=== PATIENT | male | born 1995 | race Caucasian/White ===

== ENCOUNTER 2021-03-16 18:52 | Inpatient (IN) ==
[2021-03-16] MEDS ORDERED: VANCOMYCIN CONSULT ACTIVE PRN (20:15)
[2021-03-16] MEDS ORDERED: VANCOMYCIN HCL 2,250 MG in SODIUM CHLORIDE 0.9% 500 ML IV ONE (20:15)
[2021-03-16] MEDS ORDERED: cefTRIAXone SODIUM 2,000 MG/70 ML BAG IV STA (20:15)
[2021-03-16] MEDS ORDERED: SODIUM CHLORIDE 0.9% 1000ML 1,000 ML IV ONE (20:15)
[2021-03-16 20:25] LABS: Basophils # (auto) 0.03 K/uL (0-0.2); Basophils % (auto) 0.4 %; Eosinophils # (auto) 0.06 K/uL (0-0.5); Eosinophils % (auto) 0.7 %; Hematocrit (blood only) 46.9 % (42-52); Hemoglobin 16.1 g/dL (14.0-18.0); Immature Granulocytes # (auto) 0.02 K/uL (0.00-0.02); Immature Granulocytes % (auto) 0.2 %; Lymphocytes # (auto) 3.17 K/uL (1.2-3.4); Lymphocytes % (auto) 38.8 %; Mean Corpuscular Hgb Conc 34.3 g/dL (32-36); Mean Corpuscular Volume 90.4 fL (80-100); Mean Platelet Volume 10.4 fL (7.4-10.4); Monocytes # (auto) 0.72 K/uL (0.11-0.59); Monocytes % (auto) 8.8 %; Neutrophils # (auto) 4.17 K/uL (1.4-6.5); Neutrophils % (auto) 51.1 %; Platelet Count 270 K/uL (130-400); RDW Coefficient of Variation 12.1 % (11.5-14.5); RDW Standard Deviation 39.8 fL (36.4-46.3); Red Blood Count 5.19 M/uL (4.7-6.1); White Blood Count 8.17 K/uL (4.8-10.8)
[2021-03-16 20:48] LABS: Albumin Level 4.5 gm/dl (3.4-5.0); C Reactive Protein 1.18 mg/dl (0-0.29); Calcium 10.2 mg/dl (8.5-10.1); Creatinine Clr Calc Pharmacy 136.9 ml/min; Est GFR (African American) 131.6 ml/min; Est GFR (Non-African American) 113.6 ml/min; Potassium 3.9 mmol/L (3.5-5.1)
[2021-03-16 20:51] LABS: Bilirubin,Total 0.5 mg/dl (0.2-1); Globulin 4.6 gm/dl (2.5-4.0); Total Protein 9.1 gm/dl (6.4-8.2)
--- NOTE | 2021-03-16 21:22 | XRay Report ---
XR foot LT min 3V routine, XR ankle LT min 3V routine HISTORY: 26 years-old Male cellulitis, h/o metatarsal fx acute pain of the left foot and ankle COMPARISON: Left foot radiographs 02/28/2021 TECHNIQUE: 3 views of the left foot and 3 views of the left ankle FINDINGS: FOOT: Subacute healing fractures with unchanged alignment of the first, second and third metatarsals. No ad ditional acute fracture or dislocation. No opaque foreign body. Decreased soft tissue swelling of the forefoot. ANKLE: Moderate circumferential soft tissue swelling. No acute fracture, dislocation or osteochondral defect . Small plantar enthesophyte of the calcaneus. IMPRESSION: 1. Unchanged alignment of the healing subacute nondisplaced fractures of the first, second and third metatarsals. 2. Decreased soft tissue swelling of the forefoot. 3. Circumferential soft tissue swelling of the ankle. ACT 112: Negative or not required by law. The above report was generated using voice recognition software. It may contain grammatical, syntax o r spelling errors. Electronically signed by: Eric Langford M.D. 03/16/2021 9:21 PM
--- NOTE | 2021-03-16 22:09 | Emergency Department Note ---
Impression & Plan Cellulitis and abscess of foot, Metatarsal bone fracture, Current every day smoker ED Provider Note NAME: JESSIKA TOLENTINO AGE: 26 SEX: M ARRIVES VIA: Walk-In INFORMANT: Patient, ED PROVIDER(S): Claude Rico MD CHIEF COMPLAINT: Foot cellulitis PLAN: Disposition: Admit MEDICAL DECISION MAKING: The patient is a pleasant 26-year-old gentleman daily smoker who presents to the emergency department for evaluation and treatment of worsening cellulitis of his left foot which occurs in the setting of recent metatarsal fractures of the first, second and third phalanx seen in the ED for this approximately 2 weeks ago placed in Ortho-Glass splint followed up with [facility] orthopedics where he was transition to a walking boot but then the patient noticed redness warmth and tenderness developing where his PCP started him on doxycycline but did not have any improvement towards the end of this course and was seen in the emergency department given Rocephin and discharged on cefdinir. However the patient reports no improvement since his last ED visit and persistence of pain and redness. He denies any fevers, chills, cough, congestion, GI or symptoms. He denies any known COVID-19 exposures. On arrival the patient is relatively well-appearing in no acute distress, afebrile stable vital signs. His left foot does appear somewhat mottled with mild erythema warmth and tenderness of the dorsum of the foot. Small area of midfoot with increased induration with mild fluctuance. There is no crepitus. Given the patient's failed outpatient management with oral antibiotics reasonable admit the patient for further management with IV treatment. The patient is agreement this. Blood work including blood cultures were drawn and treatment was initiated with ceftriaxone and vancomycin. Plain films of the left foot and ankle did not show any interval changes in his fracture. WBC, H/H in place within normal limits. Chemistry without metabolic acidosis. Lactate 1.2, within normal limits. LFTs without abnormality. ESR and CRP are marginally elevated. COVID-19 PCR is pending. Case was discussed with Dr. Valladares, [facility] hospitalist, who will evaluate the patient for admission. I did perform a limited bedside ultrasound of the dorsum of the patient's left foot or area of fluctuance with demonstrated suspicious collection for abscess. Formal ultrasound was ordered and is pending. Will defer I&D at this time pending likely orthopedic consultation in a.m. for more thorough examination. Admitting team updated. Triage Nursing notes reviewed and agree them. Prior medical records reviewed Vital Signs: reviewed and remarkable for no significant abnormalities Differential diagnosis: Cellulitis, abscess, MRSA infection, DVT, necrotizing fasciitis, dermatitis, drug eruption, allergic reaction, as well as other pathologies. ER treatment provided: See below. Diagnostics interpreted by me: Cardiac Monitoring: An order for continuous cardiac monitoring was placed and demonstrated NSR, 77 bpm, no ectopy. Laboratory studies: See below Imaging studies: See below Consultation(s): Case was discussed with Dr. Valladares, [facility] hospitalist, who will evaluate the patient for admission. HPI: The patient is a pleasant 26-year-old gentleman daily smoker who presents to the emergency department for evaluation and treatment of worsening cellulitis of his left foot which occurs in the setting of recent metatarsal fractures of the first, second and third phalanx seen in the ED for this approximately 2 weeks ago placed in Ortho-Glass splint followed up with [facility] orthopedics where he was transition to a walking boot but then the patient noticed redness warmth and tenderness developing where his PCP started him on doxycycline but did not have any improvement towards the end of this course and was seen in the emergency department given Rocephin and discharged on cefdinir. However the patient reports no improvement since his last ED visit and persistence of pain and redness. He denies any fevers, chills, cough, congestion, GI or symptoms. He denies any known COVID-19 exposures. ROS: See above HPI for pertinent positives & negatives. A total of 10 systems reviewed and were otherwise negative. PAST MEDICAL HISTORY:See Below PAST SURGICAL HISTORY:See Below FAMILY HISTORY:See Below SOCIAL HISTORY:See Below HOME MEDICATIONS:See Below ALLERGIES:See Below VITALS:See Below PHYSICAL EXAMINATION: GENERAL: Awake, alert, well-appearing, in no distress HENT: Normocephalic, atraumatic. Oropharynx unremarkable. EYES: Normal conjunctiva. Sclera non-icteric. NECK: Supple. No nuchal rigidity. FROM. No JVD. RESPIRATORY: Clear to auscultation. CARDIAC: Regular rate, normal rhythm. Extremities warm and well perfused. Pulses equal. ABDOMEN: Soft, non-distended. No tenderness to palpation. No rebound or guarding. No masses. RECTAL: Deferred. MUSCULOSKELETAL: Chest examination reveals no tenderness. The back is symmetrical on inspection without obvious abnormality. There is no CVA tenderness to palpation. No joint edema. LOWER EXTREMITIES: Calves are equal size bilaterally and non-tender. Left foot is somewhat mottled with mild erythema warmth and tenderness of the dorsum of the foot. Small area of midfoot with increased induration with mild fluctuance. There is no crepitus. NEURO: Normal sensorium. No sensory or motor deficits noted. SKIN: No rash or jaundice noted. Claude Rico MD Past Med/Surg History Medical History Bipolar disorder Episode of shaking Infectious mononucleosis Injury of right hand Metatarsal bone fracture Pain, dental Vomiting Surgical History No significant past surgical history Family History Other No pertinent family history in first degree relatives Social History Smoking Status: Current every day smoker Tobacco Type: E-cigarettes / Vaping Do You Dip or Chew Tobacco: No; Tobacco Cessation Education Requested by Patient: No Hx Alcohol Use: Yes Alcohol type: beer, wine and hard liquor Hx Substance Use: No Preferred Language: Kosovan Communication Ability: Effective Beliefs That Will Affect Care: None marital status: Single Current Living Situation: Spouse current occupational status: employed Other Information That Helps Us Care for You: No Feels Safe at Home: Yes Assistive Devices: Brace/Splint/Immobilizer Allergies Allergies Allergy/AdvReac Type Severity Reaction Status Date / Time vancomycin AdvReac red man Verified 03/17/21 06:16 syndrome Home Meds Home Medications Medication Instructions Recorded Confirmed baclofen 20 mg PO TID PRN 05/24/20 03/16/21 montelukast 10 mg PO HS 05/24/20 03/16/21 albuterol sulfate 2 puff INHALATION Q4 PRN 03/16/21 03/16/21 benzonatate 100 mg PO TID PRN 03/16/21 03/16/21 celecoxib 100 mg PO QAM 03/16/21 03/16/21 cetirizine 10 mg PO QAM 03/16/21 03/16/21 divalproex 250 mg PO QAM 03/16/21 03/16/21 doxycycline hyclate 100 mg PO BID 03/16/21 03/16/21 fluticasone propionate 1 - 2 spray INTRANASAL DAILY 03/16/21 03/16/21 hydroxyzine pamoate 25 mg PO HS 03/16/21 03/16/21 mometasone-formoterol [Dulera] 2 puff INHALATION BID 03/16/21 03/16/21 multivitamin 1 tab PO DAILY 03/16/21 03/16/21 pregabalin 50 mg PO QAM 03/16/21 03/16/21 pregabalin 75 mg PO HS 03/16/21 03/16/21 vortioxetine [Trintellix] 15 mg PO QAM 03/16/21 03/17/21 Previous Rx's Medication Instructions Recorded oxycodone 5 mg PO Q4H PRN #15 tab 02/28/21 cefdinir 300 mg PO BID 9 Days #18 cap 03/12/21 Results & Data (ED) Vital Signs Vital Signs - 24 hr 03/16/21 18:55 03/16/21 20:26 03/16/21 22:00 Temperature 36.4 C L Temperature Source Temporal Artery Scan Pulse Rate 87 Pulse Rate [Right Finger] 86 80 Pulse Rate from SpO2 Sensor Respiratory Rate 19 16 16 Respiratory Depth Normal Normal Respiratory Pattern Gasping Blood Pressure 137/81 Blood Pressure [Right Arm] 158/92 H 144/64 H Blood Pressure Mean 99 Blood Pressure Mean [Right Arm] 114 90 Blood Pressure Position [Right Arm] Lying Lying Pulse Oximetry 100 98 99 Oxygen Delivery Method Room Air Room Air Room Air Sepsis Recent Fever Within 48 Hours No Sepsis New/Unexplained Change in Mental Status N/A Sepsis Action Taken by Nursing No Action Required 03/16/21 23:00 03/16/21 23:10 03/16/21 23:30 Temperature Temperature Source Pulse Rate 91 H 84 75 Pulse Rate [Right Finger] Pulse Rate from SpO2 Sensor 85 77 Respiratory Rate 20 16 19 Respiratory Depth Respiratory Pattern Blood Pressure 121/92 Blood Pressure [Right Arm] Blood Pressure Mean 101 Blood Pressure Mean [Right Arm] Blood Pressure Position [Right Arm] Pulse Oximetry 99 98 Oxygen Delivery Method Sepsis Recent Fever Within 48 Hours Sepsis New/Unexplained Change in Mental Status Sepsis Action Taken by Nursing 03/16/21 23:55 03/17/21 00:00 03/17/21 00:13 Temperature 37 C 37 C Temperature Source Oral Oral Pulse Rate 91 H 93 H Pulse Rate [Right Finger] 76 84 Pulse Rate from SpO2 Sensor 88 91 H Respiratory Rate 16 25 H 21 Respiratory Depth Respiratory Pattern Blood Pressure 128/89 Blood Pressure [Right Arm] 121/92 128/89 Blood Pressure Mean 102 Blood Pressure Mean [Right Arm] 101 102 Blood Pressure Position [Right Arm] Lying Lying Pulse Oximetry 95 95 95 Oxygen Delivery Method Room Air Room Air Sepsis Recent Fever Within 48 Hours Sepsis New/Unexplained Change in Mental Status Sepsis Action Taken by Nursing 03/17/21 00:37 03/17/21 00:44 03/17/21 01:00 Temperature Temperature Source Pulse Rate 83 88 89 Pulse Rate [Right Finger] Pulse Rate from SpO2 Sensor 96 H Respiratory Rate 11 L 19 12 Respiratory Depth Respiratory Pattern Blood Pressure 133/72 131/73 Blood Pressure [Right Arm] Blood Pressure Mean 92 92 Blood Pressure Mean [Right Arm] Blood Pressure Position [Right Arm] Pulse Oximetry 94 96 Oxygen Delivery Method Sepsis Recent Fever Within 48 Hours Sepsis New/Unexplained Change in Mental Status Sepsis Action Taken by Nursing Laboratory Data Attestation: I reviewed the patient's lab results. Result diagrams: 03/16/21 20:13 03/16/21 20:13 Lab Results 03/16/21 03/16/21 03/16/21 Range/Units 20:13 20:13 20:13 WBC 8.17 (4.8-10.8) K/uL RBC 5.19 (4.7-6.1) M/uL Hgb 16.1 (14.0-18.0) g/dL Hct 46.9 (42-52) % MCV 90.4 (80-100) fL MCH 31.0 (25-34) pg MCHC 34.3 (32-36) g/dL RDW Std Deviation 39.8 (36.4-46.3) fL RDW Coeff of Deejay 12.1 (11.5-14.5) % Plt Count 270 (130-400) K/uL MPV 10.4 (7.4-10.4) fL Immature Gran % (Auto) 0.2 % Neut % (Auto) 51.1 % Lymph % (Auto) 38.8 % Moody % (Auto) 8.8 % Eos % (Auto) 0.7 % Baso % (Auto) 0.4 % Neut # (Auto) 4.17 (1.4-6.5) K/uL Lymph # (Auto) 3.17 (1.2-3.4) K/uL Moody # (Auto) 0.72 H (0.11-0.59) K/uL Eos # (Auto) 0.06 (0-0.5) K/uL Baso # (Auto) 0.03 (0-0.2) K/uL Immature Gran # (Auto) 0.02 (0.00-0.02) K/uL ESR 18 H (0-15) mm/hr Sodium (136-145) mmol/L Potassium (3.5-5.1) mmol/L Chloride (98-107) mmol/L Carbon Dioxide (21-32) mmol/L Anion Gap (3-11) BUN (7-18) mg/dl Creatinine (0.6-1.4) mg/dl Est Cr Clr Drug Dosing ml/min Est GFR ( Amer) ml/min Est GFR (Non-Af Amer) ml/min BUN/Creatinine Ratio (10-20) Glucose (70-99) mg/dl Lactate 1.2 (0.4-2.0) mmol/L Calcium (8.5-10.1) mg/dl Total Bilirubin (0.2-1) mg/dl AST (15-37) U/L ALT (12-78) U/L Alkaline Phosphatase (45-117) U/L C-Reactive Protein (0-0.29) mg/dl Total Protein (6.4-8.2) gm/dl Albumin (3.4-5.0) gm/dl Globulin (2.5-4.0) gm/dl Albumin/Globulin Ratio (0.9-2) COVID-19 Eval Order SARS-CoV-2 (PCR) (Negative) 03/16/21 03/16/21 03/16/21 Range/Units 20:13 21:02 21:02 WBC (4.8-10.8) K/uL RBC (4.7-6.1) M/uL Hgb (14.0-18.0) g/dL Hct (42-52) % MCV (80-100) fL MCH (25-34) pg MCHC (32-36) g/dL RDW Std Deviation (36.4-46.3) fL RDW Coeff of Deejay (11.5-14.5) % Plt Count (130-400) K/uL MPV (7.4-10.4) fL Immature Gran % (Auto) % Neut % (Auto) % Lymph % (Auto) % Moody % (Auto) % Eos % (Auto) % Baso % (Auto) % Neut # (Auto) (1.4-6.5) K/uL Lymph # (Auto) (1.2-3.4) K/uL Moody # (Auto) (0.11-0.59) K/uL Eos # (Auto) (0-0.5) K/uL Baso # (Auto) (0-0.2) K/uL Immature Gran # (Auto) (0.00-0.02) K/uL ESR (0-15) mm/hr Sodium 139 (136-145) mmol/L Potassium 3.9 (3.5-5.1) mmol/L Chloride 107 (98-107) mmol/L Carbon Dioxide 29 (21-32) mmol/L Anion Gap 4.0 (3-11) BUN 14 (7-18) mg/dl Creatinine 0.92 (0.6-1.4) mg/dl Est Cr Clr Drug Dosing 136.9 ml/min Est GFR ( Amer) 131.6 ml/min Est GFR (Non-Af Amer) 113.6 ml/min BUN/Creatinine Ratio 15.0 (10-20) Glucose 109 H (70-99) mg/dl Lactate (0.4-2.0) mmol/L Calcium 10.2 H (8.5-10.1) mg/dl Total Bilirubin 0.5 (0.2-1) mg/dl AST 22 (15-37) U/L ALT 31 (12-78) U/L Alkaline Phosphatase 87 (45-117) U/L C-Reactive Protein 1.18 H (0-0.29) mg/dl Total Protein 9.1 H (6.4-8.2) gm/dl Albumin 4.5 (3.4-5.0) gm/dl Globulin 4.6 H (2.5-4.0) gm/dl Albumin/Globulin Ratio 1.0 (0.9-2) COVID-19 Eval Order Covid19 at [facility] SARS-CoV-2 (PCR) NEGATIVE (Negative) Administered Medications Baclofen (Baclofen 20 Mg Tab) 20 mg PO TID PRN PRN Reason: muscle spasm back pain Stop: 04/16/21 02:52 Last Admin: 03/17/21 06:06 Dose: 20 mg Documented by: [id number] Cetirizine HCl (Cetirizine Hcl 10 Mg Tablet) 10 mg PO QAM LOVE Stop: 04/16/21 08:59 Last Admin: 03/17/21 08:58 Dose: 10 mg Documented by: [id number] Divalproex Sodium (Divalproex Extended Release 250 Mg Tabcr) 250 mg PO QAM LOVE Stop: 04/16/21 08:59 Last Admin: 03/17/21 08:58 Dose: 250 mg Documented by: [id number] Fluticasone Propionate (Fluticasone Propionate Na Spr 16 Gm Btl) 1 - 2 sprays NA DAILY LOVE Stop: 04/16/21 08:59 Last Admin: 03/17/21 08:58 Dose: 1 sprays Documented by: [id number] Fluticasone/Vilanterol (Fluticasone/Vilanterol 200/25mcg 14 Puffs/Inhaler) 1 puffs INH DAILY LOVE Stop: 04/16/21 08:59 Last Admin: 03/17/21 08:58 Dose: 1 puffs Documented by: [id number] Miscellaneous (Trintellex~Order Awaiting Action) 1 ea N/A QS LOVE Stop: 04/16/21 07:59 Last Admin: 03/17/21 08:59 Dose: Not Given Documented by: [id number] Multivitamins (Multivitamin Tab) 1 tab PO DAILY LOVE Stop: 04/16/21 08:59 Last Admin: 03/17/21 09:00 Dose: Not Given Documented by: [id number] Oxycodone HCl (Oxycodone Hcl Ir 5 Mg Tab (Immediate Release)) 5 mg PO Q4H PRN PRN Reason: Pain Stop: 03/31/21 03:28 Last Admin: 03/17/21 10:28 Dose: 5 mg Documented by: [id number] Admin: 03/17/21 04:40 Dose: 5 mg Documented by: [id number] Pregabalin (Pregabalin 50 Mg Cap) 50 mg PO QAM LOVE Stop: 04/16/21 08:59 Last Admin: 03/17/21 08:57 Dose: 50 mg Documented by: [id number] Discontinued Medications Diphenhydramine HCl (Diphenhydramine Capsule 25 Mg Cap) 25 mg PO NOW ONE Stop: 03/17/21 02:11 Last Admin: 03/17/21 02:16 Dose: 25 mg Documented by: [id number] Diphenhydramine HCl (Diphenhydramine 50 Mg/Ml Vial) 12.5 mg IV NOW STA Stop: 03/17/21 04:59 Last Admin: 03/17/21 05:22 Dose: 12.5 mg Documented by: [id number] Sodium Chloride (Nss 1000ml) 1,000 mls @ 999 mls/hr IV .Q1H1M ONE Stop: 03/16/21 21:15 Last Infusion: 03/16/21 22:40 Dose: 0 mls/hr Documented by: [id number] Admin: 03/16/21 20:52 Dose: 999 mls/hr Documented by: [id number] Ceftriaxone Sodium (Rocephin) 2,000 mg in 70 mls @ 140 mls/hr IV NOW STA Stop: 03/16/21 20:44 Last Infusion: 03/16/21 22:39 Dose: 0 mls/hr Documented by: [id number] Admin: 03/16/21 20:52 Dose: 140 mls/hr Documented by: [id number] Vancomycin HCl 2,250 mg/ (Sodium Chloride) 545 mls @ 200 mls/hr IV NOW ONE Stop: 03/16/21 22:58 Last Infusion: 03/17/21 01:01 Dose: 0 mls/hr Documented by: [id number] Admin: 03/16/21 21:59 Dose: 200 mls/hr Documented by: [id number] Daptomycin 350 mg/ Syringe 7 mls @ 3.5 mls/min IV Q24H [facility]; Protocol Stop: 03/24/21 05:59 Last Admin: 03/17/21 05:22 Dose: 3.5 mls/min Documented by: [id number] Imaging Data Radiologist's Impression: Soft Tissue Ultrasound 03/16/21 23:43 LEFT FOOT ULTRASOUND CLINICAL HISTORY: Left foot swelling. COMPARISON STUDY: None FINDINGS: A targeted ultrasound of the dorsum of the left foot was performed. There is a complex fluid collection with internal echoes corresponding to the area of palpable swelling measuring 30 x 17 x 9 mm. There is peripheral hyperemia. Diagnostic considerations include abscess or organizing hematoma. There is adjacent subcutaneous edema. IMPRESSION: 1. 30 x 17 x 9 mm complex fluid collection within the subcutaneous tissues of the dorsum of the left foot. There is adjacent edema and surrounding hyperemia. Likely diagnostic considerations include abscess versus organizing hematoma. ACT 112: Negative or not required by law. Electronically signed by: Abelino Platt M.D. 03/17/2021 9:33 AM Discharge Plan Visit Data Chief Complaint: Foot Injury/Pain Stated Complaint: CELLULITIS IN L FOOT ED Provider: Claude Rico Discharge Problem: Cellulitis and abscess of foot, Metatarsal bone fracture, Current every day smoker Patient Disposition: Admitted As Inpatient Discharge Instructions Interventions: ED Discharge Assessment Last Done: 03/17/21 02:36 Discharge Problem: Metatarsal bone fracture Qualifiers: Encounter type: subsequent encounter Metatarsal bone: unspecified metatarsal Fracture type: closed Fracture alignment: nondisplaced Laterality: left
[2021-03-17] MEDS ORDERED: diphenhydrAMINE Capsule 25 MG CAP PO ONE (02:10)
[2021-03-17] MEDS ORDERED: CONSULT PHARMACY STA (02:53)
[2021-03-17] MEDS ORDERED: POLYETHYLENE (MIRALAX) 17 GM PACK PO PRN (02:53)
[2021-03-17] MEDS ORDERED: ONDANSETRON INJ 2 MG/ML 2 ML VIAL IV PRN (02:53)
[2021-03-17] MEDS: oxyCODONE HCL IR 5 MG TAB (IMMEDIATE RELEASE) PO PRN ×3 (04:40→21:36)
--- NOTE | 2021-03-17 04:51 | History and Physical Report ---
DATE OF ADMISSION: 03/17/2021 CHIEF COMPLAINT: Left foot injury. HISTORY OF PRESENT ILLNESS: This is a 26-year-old male with past medical history significant for allergic rhinitis, mixed rhinitis, intermittent asthma, slow transit constipation, allergic conjunctivitis bilateral, adjustment depression, bipolar 1 disorder, history of tobacco use disorder, who comes because of left foot infection. The patient dropped a piano on his foot on 02/28/2021. He was in the ER and he was followed with orthopedics. He has a nondisplaced fracture of the first and second and third metatarsals. Initially treated with a splint and then placed on the boot. Then he noticed some redness in that area. Followed up with the family doctor, prescribed doxycycline, but it was not getting better, so came to the ER on 03/12/2021. Given a dose of Rocephin and discharged on cefdinir and doxycycline but as it was not getting better, he came to the hospital. Denies any fever, chills. Has pain on the redness area. Denies any nausea or vomiting, no abdominal pain, no chest pain or shortness of breath. No cough, no headache, no blurred vision, no earache, no runny nose. Appetite is okay. Normal bowel and bladder movements. In the ER, with the vancomycin developed redness of the trunk and itchiness. Currently, resting comfortably and hemodynamically stable. ALLERGIES: CAT DANDER, RED DYE. PAST MEDICAL HISTORY: As mentioned above. PAST SURGICAL HISTORY: Lumbosacral epidural shot, umbilical hernia repair. MEDICATIONS: The patient is on albuterol 2 puffs inhalation every 4 hours p.r.n., baclofen 20 mg p.o. t.i.d. p.r.n., benzonatate 100 mg p.o. t.i.d. p.r.n., cefdinir 300 mg p.o. b.i.d., celecoxib 100 mg p.o. a.m., cetirizine 10 mg p.o. a.m., divalproex 250 mg p.o. a.m., doxycycline 100 mg p.o. b.i.d., Flonase 1-2 sprays intranasal daily p.r.n., hydroxyzine 25 mg p.o. at bedtime, Dulera 2 puffs inhalation b.i.d., montelukast 10 mg p.o. at bedtime, multivitamin 1 tablet p.o. daily, oxycodone 5 mg p.o. q. 4 hours p.r.n., pregabalin 50 mg in a.m. and 75 mg p.o. at bedtime, Trintellix 15 mg p.o. a.m. FAMILY HISTORY: Significant for father has allergies, mother has allergies. SOCIAL HISTORY: Single, quit smoking in 2016. Alcohol, sometimes daily. No drug use. REVIEW OF SYSTEMS: As per HPI. Rest of the review of systems negative. PHYSICAL EXAMINATION: GENERAL: The patient is of moderate built, not in acute distress. VITAL SIGNS: Temperature 37, pulse 89, respiratory rate 12, blood pressure 131/73, oxygen 96% on room air. HEENT: Pupils equal, round, reactive to light. Oral mucosa moist. NECK: No JVD. No neck masses. CARDIOVASCULAR: S1, S2 heard, regular rate and rhythm, no murmur, no gallop. RESPIRATORY SYSTEM: Normal AP diameter. No accessory muscle use. No wheezing, no crackles. ABDOMEN: Soft, bowel sounds present, nontender. No distention. CENTRAL NERVOUS SYSTEM: Cranial nerves II-XII grossly intact. Nonfocal. EXTREMITIES: Left foot is erythematous, slight swelling, mild warmth on palpation. LABORATORY DATA: WBC 8.1, hemoglobin 16.1, hematocrit 46.9, platelets 270. Sodium 139. ESR 18. Sodium 139, potassium 3.9, chloride 107, bicarbonate 29, BUN 14, creatinine 0.9, serum glucose 109, lactate 1.2, calcium 10.2, total bilirubin 0.5, AST 12, AST 31, alkaline phosphatase 87. C-reactive protein 1.1. SARS-CoV-2 PCR negative. IMAGING DATA: Foot x-ray, unchanged alignment with a healing subacute nondisplaced fracture of the first, second and third metatarsals. Decreased soft tissue swelling of the forefoot. Circumferential soft tissue swelling of the ankle. Ankle x-ray, same as above. ASSESSMENT AND PLAN: This is a 26-year-old male who injured his left foot with falling of piano on 02/28/2021, who comes because of redness of the foot and failed outpatient treatment with oral antibiotics. 1. Left foot infection: Failed outpatient treatment with oral antibiotics. Received vancomycin and Rocephin in the ER. With vancomycin, he developed red man syndrome. Vancomycin was stopped and changed vancomycin to daptomycin and continue Rocephin. Follow the cultures. Consult orthopedics in the a.m. Pain control. 2. Bipolar depression: Continue home medications of divalproex, Trintellix. Will monitor. 3. History of asthma: Continue home inhalers, currently stable. 4. History of allergic rhinitis: Continue cetirizine. 5. Deep venous thrombosis prophylaxis: Sequential compression devices for now. 6. Disposition: Monitor in the medical floor. Expect to discharge home and follow with family doctor. Level 1 full code. MTDD
[2021-03-17] MEDS ORDERED: diphenhydrAMINE 50 MG/ML VIAL IV STA (04:58)
[2021-03-17] MEDS ORDERED: DAPTOmycin 350 MG in SYRINGE 0 ML IV SCH (06:00)
[2021-03-17] MEDS: BACLOFEN 20 MG TAB PO PRN ×2 (06:06→22:06)
[2021-03-17] MEDS: PREGABALIN 50 MG CAP PO SCH (08:57)
[2021-03-17] MEDS: CETIRIZINE HCL 10 MG TABLET PO SCH (08:58)
[2021-03-17] MEDS: DIVALPROEX EXTENDED RELEASE 250 MG TABCR PO SCH (08:58)
[2021-03-17] MEDS: FLUTICASONE PROPIONATE NA SPR 16 GM BTL SCH (08:58)
[2021-03-17] MEDS: FLUTICASONE/VILANTEROL 200/25MCG 14 PUFFS/INHALER INH SCH (08:58)
[2021-03-17] MEDS: MULTIVITAMIN TAB PO SCH (09:00)
--- NOTE | 2021-03-17 09:31 | Orthopedic Consultation ---
Date of Consultation March 17, 2021 Assessment & Plan (1) Metatarsal bone fracture: Non-displaced fractures left 1st, 2nd, and 3rd metatarsals. RICE. Continue Celebrex to 200 mg daily, alternating with Tylenol as needed for pain. Will utilize Tubigrip, and obtain a postop shoe. Will be weightbearing as tolerated through his heel plus or minus crutches. Present on Admission?: Yes (2) Cellulitis: Continue IV Abx. MRI foot and ankle to evaluate for abscess vs hematoma vs osteomyelitis and joint involvement. Continue care per primary service. Present on Admission?: Yes History of Present Illness Reason for Consultation: Left foot/ankle pain Requesting Physician: Sagrario Coffey MD Attending Physician: Enedelia Abernathy MD History of Present Illness Duong is a pleasant 26-year-old male, who injured his left foot when he dropped a 400 pound piano on his left foot from the back of a truck. He initially went to the emergency room February 28, 2021 where x-rays were obtained, and was seen in the office the next day and treated conservatively for his crush injury and 1st, 2nd, 3rd Metatarsal non-displaced fractures. Since then he has returned ED where he has been treated for cellulitis as an outpatient and as symptoms have not improved returned to ED yesterday. 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 His biggest complaint is pain about the ankle. He needed pain medication last evening more for his back issues. Allergies Allergy/AdvReac Type Severity Reaction Status Date / Time vancomycin AdvReac red man Verified 03/17/21 06:16 syndrome Home Medications Medication Instructions Recorded Confirmed Type baclofen 20 mg PO TID PRN 05/24/20 03/16/21 History montelukast 10 mg PO HS 05/24/20 03/16/21 History oxycodone 5 mg PO Q4H PRN #15 tab 02/28/21 03/16/21 Rx cefdinir 300 mg PO BID 9 Days #18 cap 03/12/21 03/16/21 Rx albuterol sulfate 2 puff INHALATION Q4 PRN 03/16/21 03/16/21 History benzonatate 100 mg PO TID PRN 03/16/21 03/16/21 History celecoxib 100 mg PO QAM 03/16/21 03/16/21 History cetirizine 10 mg PO QAM 03/16/21 03/16/21 History divalproex 250 mg PO QAM 03/16/21 03/16/21 History doxycycline hyclate 100 mg PO BID 03/16/21 03/16/21 History fluticasone propionate 1 - 2 spray INTRANASAL DAILY 03/16/21 03/16/21 History hydroxyzine pamoate 25 mg PO HS 03/16/21 03/16/21 History mometasone-formoterol [Dulera] 2 puff INHALATION BID 03/16/21 03/16/21 History multivitamin 1 tab PO DAILY 03/16/21 03/16/21 History pregabalin 50 mg PO QAM 03/16/21 03/16/21 History pregabalin 75 mg PO HS 03/16/21 03/16/21 History vortioxetine [Trintellix] 15 mg PO QAM 03/16/21 03/17/21 History Patient History Medical History (Updated 03/17/21 @ 10:14 by Ceasar Coffey MD) Bipolar disorder Episode of shaking Infectious mononucleosis Injury of right hand Metatarsal bone fracture Pain, dental Vomiting Surgical History No significant past surgical history Family History Other No pertinent family history in first degree relatives Social History Smoking Status: Current every day smoker Tobacco Type: E-cigarettes / Vaping Do You Dip or Chew Tobacco: No; Tobacco Cessation Education Requested by Patient: No Hx Alcohol Use: Yes Alcohol type: beer, wine and hard liquor Hx Substance Use: No Preferred Language: Serbian Communication Ability: Effective Beliefs That Will Affect Care: None marital status: Single Current Living Situation: Spouse current occupational status: employed Other Information That Helps Us Care for You: No Feels Safe at Home: Yes Assistive Devices: Brace/Splint/Immobilizer Review of Systems Review of Systems: All systems reviewed & are unremarkable except as noted in HPI & below Physical Exam Physical Exam: Focusing on the patient's left lower extremity: BCR < 2 sec Sensation to light touch is intact Motor to the gastroc soleus, tibialis anterior, and EHL is 5/5. + Tenderness to palpation over the first, second, and third metatarsals. - Forefoot squeeze test. - Calf squeeze test. + Left dorsal foot swelling diffuse, decreased, small focal area over 2nd Metatarsal. Multiple small abrasions, corresponding to holes in his Croc type shoes, no longer present. Diffuse swelling and erythema dorsum of foot and lateral ankle. - Anterior drawer. Results & Data ([facility]) Vital Signs (Past 12 Hours) Vital Signs Temp Pulse Pulse Resp BP BP Pulse Ox 03/17/21 08:09 36.5 C 77 12 123/80 95 03/17/21 02:55 36.7 C 85 18 151/94 H 97 03/17/21 02:31 36.8 C 75 12 127/80 96 03/17/21 01:00 89 12 131/73 96 03/17/21 00:44 88 19 133/72 03/17/21 00:37 83 11 L 94 03/17/21 00:13 37 C 93 H 84 21 128/89 128/89 95 03/17/21 00:00 91 H 25 H 95 03/16/21 23:55 37 C 76 16 121/92 95 03/16/21 23:30 75 19 98 03/16/21 23:10 84 16 121/92 99 03/16/21 23:00 91 H 20 03/16/21 22:00 80 16 144/64 H 99 Laboratory Results 03/16/21 03/16/21 03/16/21 Range/Units 21:02 21:02 20:13 WBC (4.8-10.8) K/uL RBC (4.7-6.1) M/uL Hgb (14.0-18.0) g/dL Hct (42-52) % MCV (80-100) fL MCH (25-34) pg MCHC (32-36) g/dL RDW Std Deviation (36.4-46.3) fL RDW Coeff of Deejay (11.5-14.5) % Plt Count (130-400) K/uL MPV (7.4-10.4) fL Immature Gran % (Auto) % Neut % (Auto) % Lymph % (Auto) % [place] % (Auto) % Eos % (Auto) % Baso % (Auto) % Neut # (Auto) (1.4-6.5) K/uL Lymph # (Auto) (1.2-3.4) K/uL [place] # (Auto) (0.11-0.59) K/uL Eos # (Auto) (0-0.5) K/uL Baso # (Auto) (0-0.2) K/uL Immature Gran # (Auto) (0.00-0.02) K/uL ESR (0-15) mm/hr Sodium 139 (136-145) mmol/L Potassium 3.9 (3.5-5.1) mmol/L Chloride 107 (98-107) mmol/L Carbon Dioxide 29 (21-32) mmol/L Anion Gap 4.0 (3-11) BUN 14 (7-18) mg/dl Creatinine 0.92 (0.6-1.4) mg/dl Est Cr Clr Drug Dosing 136.9 ml/min Est GFR ( Amer) 131.6 ml/min Est GFR (Non-Af Amer) 113.6 ml/min BUN/Creatinine Ratio 15.0 (10-20) Glucose 109 H (70-99) mg/dl Lactate (0.4-2.0) mmol/L Calcium 10.2 H (8.5-10.1) mg/dl Total Bilirubin 0.5 (0.2-1) mg/dl AST 22 (15-37) U/L ALT 31 (12-78) U/L Alkaline Phosphatase 87 (45-117) U/L C-Reactive Protein 1.18 H (0-0.29) mg/dl Total Protein 9.1 H (6.4-8.2) gm/dl Albumin 4.5 (3.4-5.0) gm/dl Globulin 4.6 H (2.5-4.0) gm/dl Albumin/Globulin Ratio 1.0 (0.9-2) COVID-19 Eval Order Covid19 at [facility] SARS-CoV-2 (PCR) NEGATIVE (Negative) 03/16/21 03/16/21 03/16/21 Range/Units 20:13 20:13 20:13 WBC 8.17 (4.8-10.8) K/uL RBC 5.19 (4.7-6.1) M/uL Hgb 16.1 (14.0-18.0) g/dL Hct 46.9 (42-52) % MCV 90.4 (80-100) fL MCH 31.0 (25-34) pg MCHC 34.3 (32-36) g/dL RDW Std Deviation 39.8 (36.4-46.3) fL RDW Coeff of Deejay 12.1 (11.5-14.5) % Plt Count 270 (130-400) K/uL MPV 10.4 (7.4-10.4) fL Immature Gran % (Auto) 0.2 % Neut % (Auto) 51.1 % Lymph % (Auto) 38.8 % [place] % (Auto) 8.8 % Eos % (Auto) 0.7 % Baso % (Auto) 0.4 % Neut # (Auto) 4.17 (1.4-6.5) K/uL Lymph # (Auto) 3.17 (1.2-3.4) K/uL [place] # (Auto) 0.72 H (0.11-0.59) K/uL Eos # (Auto) 0.06 (0-0.5) K/uL Baso # (Auto) 0.03 (0-0.2) K/uL Immature Gran # (Auto) 0.02 (0.00-0.02) K/uL ESR 18 H (0-15) mm/hr Sodium (136-145) mmol/L Potassium (3.5-5.1) mmol/L Chloride (98-107) mmol/L Carbon Dioxide (21-32) mmol/L Anion Gap (3-11) BUN (7-18) mg/dl Creatinine (0.6-1.4) mg/dl Est Cr Clr Drug Dosing ml/min Est GFR ( Amer) ml/min Est GFR (Non-Af Amer) ml/min BUN/Creatinine Ratio (10-20) Glucose (70-99) mg/dl Lactate 1.2 (0.4-2.0) mmol/L Calcium (8.5-10.1) mg/dl Total Bilirubin (0.2-1) mg/dl AST (15-37) U/L ALT (12-78) U/L Alkaline Phosphatase (45-117) U/L C-Reactive Protein (0-0.29) mg/dl Total Protein (6.4-8.2) gm/dl Albumin (3.4-5.0) gm/dl Globulin (2.5-4.0) gm/dl Albumin/Globulin Ratio (0.9-2) COVID-19 Eval Order SARS-CoV-2 (PCR) (Negative) Diagnostic Findings XR foot LT min 3V routine, XR ankle LT min 3V routine HISTORY: 26 years-old Male cellulitis, h/o metatarsal fx acute pain of the left foot and ankle COMPARISON: Left foot radiographs 02/28/2021 TECHNIQUE: 3 views of the left foot and 3 views of the left ankle FINDINGS: FOOT: Subacute healing fractures with unchanged alignment of the first, second and third metatarsals. No additional acute fracture or dislocation. No opaque foreign body. Decreased soft tissue swelling of the forefoot. ANKLE: Moderate circumferential soft tissue swelling. No acute fracture, dislocation or osteochondral defect. Small plantar enthesophyte of the calcaneus. IMPRESSION: 1. Unchanged alignment of the healing subacute nondisplaced fractures of the first, second and third metatarsals. 2. Decreased soft tissue swelling of the forefoot. 3. Circumferential soft tissue swelling of the ankle. LEFT FOOT ULTRASOUND CLINICAL HISTORY: Left foot swelling. COMPARISON STUDY: None FINDINGS: A targeted ultrasound of the dorsum of the left foot was performed. There is a complex fluid collection with internal echoes corresponding to the area of palpable swelling measuring 30 x 17 x 9 mm. There is peripheral hyperemia. Diagnostic considerations include abscess or organizing hematoma. There is adjacent subcutaneous edema. IMPRESSION: 1. 30 x 17 x 9 mm complex fluid collection within the subcutaneous tissues of the dorsum of the left foot. There is adjacent edema and surrounding hyperemia. Likely diagnostic considerations include abscess versus organizing hematoma.
--- NOTE | 2021-03-17 09:34 | Ultrasound Report ---
LEFT FOOT ULTRASOUND CLINICAL HISTORY: Left foot swelling. COMPARISON STUDY: None FINDINGS: A targeted ultrasound of the dorsum of the left foot was performed. There is a complex flui d collection with internal echoes corresponding to the area of palpable swelling measuring 30 x 17 x 9 mm. There is peripheral hyperemia. Diagnostic considerations include abscess or organizing hematoma . There is adjacent subcutaneous edema. IMPRESSION: 1. 30 x 17 x 9 mm complex fluid collection within the subcutaneous tissues of the dorsum of the left foot. There is adjacent edema and surrounding hyperemia. Likely diagnostic considerations include abs cess versus organizing hematoma. ACT 112: Negative or not required by law. Electronically signed by: Abelino Platt M.D. 03/17/2021 9:33 AM
--- NOTE | 2021-03-17 12:15 | Magnetic Resonance Report ---
MRI OF THE LEFT FOREFOOT NO CONTRAST CLINICAL HISTORY: Cellulitis. History of metatarsal fracture. Possible acute osteomyelitis. COMPARISON STUDY: X-ray study dated 03/16/2021 FINDINGS: Imaging was acquired in the axial, sagittal, and coronal planes. There is dorsal soft tissue edema. There is marrow edema involving the first and second metatarsals, consistent with the history of prior fractures. There is a dorsal duct containing soft tissue fluid collection located at the mid second metatarsal l evel measuring 35 x 8 x 18 mm. The sterility of this collection cannot be determined on MRI scanning. IMPRESSION: 1. Marrow edema involving the first and second metatarsals, likely secondary to healing fractures. 2. Subcutaneous dorsal fluid collection at the mid second metatarsal level measuring 35 x 18 x 8 mm. The sterility of this collection cannot be determined on MRI scanning. 3. Diffuse dorsal soft tissue edema. ACT 112: Negative or not required by law. Electronically signed by: Abelino Platt M.D. 03/17/2021 12:14 PM
--- NOTE | 2021-03-17 13:07 | Magnetic Resonance Report ---
MR ankle LT wo con CLINICAL HISTORY: Left ankle pain and swelling. Cellulitis. Evaluate for osteomyelitis. COMPARISON STUDY: X-ray study dated 03/16/2021 FINDINGS: There is first metatarsal marrow edema, consistent with the patient's known healing fracture. There is a partially visualized subcutaneous cystic lesion at the level of the dorsal aspect of the s econd metatarsal. This was better visualized on the MRI of the foot performed the same day. The steri lity of this collection cannot be determined. There is diffuse dorsal soft tissue edema. There are no areas of marrow replacement to indicate neoplasm. There is no evidence of major ligamentous disruption. There is no evidence of significant tendinopathy. IMPRESSION: 1. First metatarsal marrow edema consistent with the patient's known healing fracture 2. Dorsal soft tissue edema 3. Partially visualized subcutaneous fluid collection visualized dorsally at the second metatarsal le kristen. The sterility of this collection cannot be determined. ACT 112: Negative or not required by law. Electronically signed by: Abelino Platt M.D. 03/17/2021 1:05 PM
--- NOTE | 2021-03-17 16:50 | Hospitalist Progress Note ---
Date of Service March 17, 2021 Assessment & Plan (1) Metatarsal bone fracture: (2) Cellulitis: Failed outpatient treatment with oral antibiotics with cefdinir and doxycycline Received vancomycin and Rocephin in the ER. MRI of left foot showed marrow edema involving the first and second metatarsals, secondary to healing fractures. Subcutaneous dorsal fluid collection at the mid second metatarsal level measuring 35 x 18 x 8 mm. MRI left ankle showed dorsal soft tissue edema Will continue abx with Vanco and Rocephin Ortho on board Will discuss with ortho for possible aspiration if able Continue pain control Will consult PT Bipolar depression: Continue home medications of divalproex, Trintellix. History of asthma Continue home inhalers, currently stable. History of allergic rhinitis: Continue cetirizine. DVT px will place on SCD for now Admission and Anticipated Discharge Date Admission Date: March 17, 2021 Subjective Pt was seen and examined for follow up of foot cellulitis and pain Sitting in bed with no distress Pt said that he has some tenderness in the left foot erythema seems to improve slightly Denies any chest pain, palpitation, dizziness and SOB Review of Systems Review of Systems: All systems reviewed & are unremarkable except as noted in Subjective Physical Exam Physical Exam: General- No acute distress Head- atraumatic Eyes- PERRL, EOMI, ENT- oropharynx clear Neck- supple, no JVD Lungs- clear to auscultation Heart- regular rhythm; no murmur Abdomen- normal bowel sounds, soft, nontender Extremities- no calf tenderness, erythema and swelling in left foot Neuro- alert, oriented x 3; PERRL, EOMI; no facial palsy; no dysarthria Skin- warm & dry Results & Data Results & Data ([facility]) Vital Signs (Past 12 Hours) Vital Signs Temp Pulse Resp BP Pulse Ox 03/17/21 15:09 36.6 C 78 18 136/83 98 03/17/21 08:09 36.5 C 77 12 123/80 95 (1) Metatarsal bone fracture Encounter type: subsequent encounter Fracture alignment: nondisplaced Fracture type: closed Laterality: left Metatarsal bone: unspecified metatarsal
--- NOTE | 2021-03-17 17:32 | Orthopedic Progress Note ---
Date of Service March 17, 2021 Assessment & Plan (1) Metatarsal bone fracture: Non-displaced fractures left 1st and 2nd metatarsals. RICE. Continue Celebrex to 200 mg daily, alternating with Tylenol as needed for pain. Will utilize Tubigrip, and obtain a postop shoe. Will be weightbearing as tolerated through his heel plus or minus crutches. (2) Cellulitis: Continue IV Abx. MRI foot and ankle showed fluid collection (abscess vs hematoma) and soft tissue edema, no osteomyelitis or joint involvement. Patient has recently eaten and has elected to have the fluid collection aspirated. A time-out was preformed and under sterile conditions the fluid collection was aspirated with an 18 gauge needle after prepping the foot with Betadine. Tolerated the procedure well. Area clean, dried , and a Band-Aid placed over top. ~ 1 cc of old dried blood aspirated and sent for Stat Gram stain & Cx. Will re-evaluate in am. If gram stain or cultures concerning would consider proceeding with I&D left foot, as there was no juancho purulence, continue current care. Continue care per primary service. Admission and Anticipated Discharge Date Admission Date: March 17, 2021 Subjective Left ankle/foot pain Review of Systems Review of Systems: All systems reviewed & are unremarkable except as noted in HPI & below Physical Exam Physical Exam: Focusing on the patient's left lower extremity: BCR < 2 sec Sensation to light touch is intact Motor to the gastroc soleus, tibialis anterior, and EHL is 5/5. + Tenderness to palpation over the first, second, and third metatarsals. - Forefoot squeeze test. - Calf squeeze test. + Left dorsal foot swelling diffuse, decreased, small focal area over 2nd Metatarsal. Multiple small abrasions, corresponding to holes in his Croc type shoes, no longer present. Diffuse swelling and erythema dorsum of foot and lateral ankle, dimimished. - Anterior drawer. Results & Data ([facility]) Vital Signs (Past 12 Hours) Vital Signs Temp Pulse Resp BP Pulse Ox 03/17/21 15:09 36.6 C 78 18 136/83 98 03/17/21 08:09 36.5 C 77 12 123/80 95 Diagnostic Findings MRI OF THE LEFT FOREFOOT NO CONTRAST CLINICAL HISTORY: Cellulitis. History of metatarsal fracture. Possible acute osteomyelitis. COMPARISON STUDY: X-ray study dated 03/16/2021 FINDINGS: Imaging was acquired in the axial, sagittal, and coronal planes. There is dorsal soft tissue edema. There is marrow edema involving the first and second metatarsals, consistent with the history of prior fractures. There is a dorsal duct containing soft tissue fluid collection located at the mid second metatarsal level measuring 35 x 8 x 18 mm. The sterility of this collection cannot be determined on MRI scanning. IMPRESSION: 1. Marrow edema involving the first and second metatarsals, likely secondary to healing fractures. 2. Subcutaneous dorsal fluid collection at the mid second metatarsal level measuring 35 x 18 x 8 mm. The sterility of this collection cannot be determined on MRI scanning. 3. Diffuse dorsal soft tissue edema. MR ankle LT wo con CLINICAL HISTORY: Left ankle pain and swelling. Cellulitis. Evaluate for osteomyelitis. COMPARISON STUDY: X-ray study dated 03/16/2021 FINDINGS: There is first metatarsal marrow edema, consistent with the patient's known healing fracture. There is a partially visualized subcutaneous cystic lesion at the level of the dorsal aspect of the second metatarsal. This was better visualized on the MRI of the foot performed the same day. The sterility of this collection cannot be determined. There is diffuse dorsal soft tissue edema. There are no areas of marrow replacement to indicate neoplasm. There is no evidence of major ligamentous disruption. There is no evidence of significant tendinopathy. IMPRESSION: 1. First metatarsal marrow edema consistent with the patient's known healing fracture 2. Dorsal soft tissue edema 3. Partially visualized subcutaneous fluid collection visualized dorsally at the second metatarsal level. The sterility of this collection cannot be determined. (1) Metatarsal bone fracture Encounter type: subsequent encounter Fracture alignment: nondisplaced Fracture type: closed Laterality: left Metatarsal bone: unspecified metatarsal
[2021-03-17] MEDS: BENZONATATE 100 MG CAPSULE PO PRN (19:29)
[2021-03-17] MEDS: ALBUTEROL HFA 8 GM INHALER INH PRN (20:00)
[2021-03-17] MEDS: cefTRIAXone SODIUM 2,000 MG in DEXTROSE 5% 50 ML IV SCH (20:34)
[2021-03-17] MEDS: PREGABALIN 75 MG CAP PO SCH (20:39)
[2021-03-17] MEDS: hydrOXYzine HCl 25 MG TAB PO SCH (20:39)
[2021-03-17] MEDS: MONTELUKAST SODIUM 10 MG TABLET PO SCH (20:39)
[2021-03-18] MEDS: oxyCODONE HCL IR 5 MG TAB (IMMEDIATE RELEASE) PO PRN ×3 (06:18→21:49)
[2021-03-18] MEDS: DAPTOmycin 300 MG in SYRINGE 0 ML IV SCH (06:19)
[2021-03-18] MEDS: BACLOFEN 20 MG TAB PO PRN (06:38)
[2021-03-18] MEDS: BENZONATATE 100 MG CAPSULE PO PRN (07:22)
[2021-03-18] MEDS: ACETAMINOPHEN 325 MG TAB PO PRN ×2 (07:22→14:11)
[2021-03-18] MEDS ORDERED: KETOROLAC TROMETHAMINE 15 MG/ML VIAL IV ONE (08:12)
[2021-03-18] MEDS: FLUTICASONE PROPIONATE NA SPR 16 GM BTL SCH (10:25)
[2021-03-18] MEDS: VORTIOXETINE HYDROBROMIDE PO SCH (10:25)
[2021-03-18] MEDS: FLUTICASONE/VILANTEROL 200/25MCG 14 PUFFS/INHALER INH SCH (10:26)
[2021-03-18] MEDS: MULTIVITAMIN TAB PO SCH (10:26)
[2021-03-18] MEDS: CETIRIZINE HCL 10 MG TABLET PO SCH (10:26)
[2021-03-18] MEDS: DIVALPROEX EXTENDED RELEASE 250 MG TABCR PO SCH (10:27)
[2021-03-18] MEDS: PREGABALIN 50 MG CAP PO SCH (10:28)
[2021-03-18] MEDS ORDERED: VORTIOXETINE HYDROBROMIDE PO SCH (10:30)
--- NOTE | 2021-03-18 12:21 | Orthopedic Progress Note ---
Date of Service March 18, 2021 Assessment & Plan (1) Metatarsal bone fracture: Non-displaced fractures left 1st and 2nd metatarsals. RICE. Continue Celebrex to 200 mg daily, alternating with Tylenol as needed for pain. Will utilize Tubigrip, and obtain a postop shoe. Will be weightbearing as tolerated through his heel plus or minus crutches. (2) Cellulitis: Continue IV Abx. MRI foot and ankle showed fluid collection (abscess vs hematoma) and soft tissue edema, no osteomyelitis or joint involvement. Patient has recently eaten and has elected to have the fluid collection aspirated. A time-out was preformed and under sterile conditions the fluid collection was aspirated with an 18 gauge needle after prepping the foot with Betadine. Tolerated the procedure well. Area clean, dried , and a Band-Aid placed over top. ~ 1 cc of old dried blood aspirated and sent for Stat Gram stain & Cx. Will re-evaluate 03/19/21. If gram stain or cultures concerning would consider proceeding with I&D left foot, as there was no juancho purulence, continue current care. Continue care per primary service. Admission and Anticipated Discharge Date Admission Date: March 17, 2021 Subjective Foot feeling better, biggest problem his back Review of Systems Review of Systems: All systems reviewed & are unremarkable except as noted in HPI & below Physical Exam Physical Exam: Focusing on the patient's left lower extremity: BCR < 2 sec Sensation to light touch is intact Motor to the gastroc soleus, tibialis anterior, and EHL is 5/5. + Tenderness to palpation over the first, second, and third metatarsals, significantly decreased. - Forefoot squeeze test. - Calf squeeze test. + Left dorsal foot swelling diffuse, decreased, small focal area over 2nd Metatarsal. Multiple small abrasions, corresponding to holes in his Croc type shoes, no longer present. Diffuse swelling and erythema dorsum of foot and lateral ankle, diminished. - Anterior drawer. Results & Data ([facility]) Vital Signs (Past 12 Hours) Vital Signs Temp Pulse Resp BP Pulse Ox 03/18/21 07:38 36.3 C L 59 L 18 123/71 94 Laboratory Results 03/17/21 Aspiration L foot Gram stain many WBC's, No organisms. Cx no growth to date Blood Cx no growth to date (1) Metatarsal bone fracture Encounter type: subsequent encounter Fracture alignment: nondisplaced Fracture type: closed Laterality: left Metatarsal bone: unspecified metatarsal
[2021-03-18] MEDS: ALBUTEROL HFA 8 GM INHALER INH PRN (19:12)
--- NOTE | 2021-03-18 19:53 | Hospitalist Progress Note ---
Date of Service March 18, 2021 Assessment & Plan (1) Metatarsal bone fracture: (2) Cellulitis: Failed outpatient treatment with oral antibiotics with cefdinir and doxycycline Received vancomycin and Rocephin in the ER. MRI of left foot showed marrow edema involving the first and second metatarsals, secondary to healing fractures. Subcutaneous dorsal fluid collection at the mid second metatarsal level measuring 35 x 18 x 8 mm. MRI left ankle showed dorsal soft tissue edema Will continue abx with Vanco and Rocephin Ortho on board S/P aspiration on 03/17 by ortho Waiting for culture result from the aspiration if cx grew any organism, ortho will take him for I&D Continue Celebrex to 200 mg daily, alternating with Tylenol as needed for pain Continue weightbearing as tolerated through his heel plus or minus crutches. Continue pain control PT/OT eval Bipolar depression: Continue home medications of divalproex, Trintellix. History of asthma Continue home inhalers, currently stable. History of allergic rhinitis: Continue cetirizine. DVT px will place on SCD for now Admission and Anticipated Discharge Date Admission Date: March 17, 2021 Subjective Pt was seen and examined for follow up foot cellulitis Lying in bed with no distress Pt said that erythema and swelling improved Denies any chest pain, palpitation, dizziness and SOB Review of Systems Review of Systems: All systems reviewed & are unremarkable except as noted in Subjective Physical Exam Physical Exam: General- No acute distress Head- atraumatic Eyes- PERRL, EOMI, ENT- oropharynx clear Neck- supple, no JVD Lungs- clear to auscultation Heart- regular rhythm; no murmur Abdomen- normal bowel sounds, soft, nontender Extremities- no calf tenderness, erythema and swelling in left foot Neuro- alert, oriented x 3; PERRL, EOMI; no facial palsy; no dysarthria Skin- warm & dry Results & Data Results & Data ([facility]) Vital Signs (Past 12 Hours) Vital Signs Temp Pulse Resp BP Pulse Ox 03/18/21 19:12 81 12 96 03/18/21 16:37 36.6 C 76 18 143/84 H 95 (1) Metatarsal bone fracture Encounter type: subsequent encounter Fracture alignment: nondisplaced Fracture type: closed Laterality: left Metatarsal bone: unspecified metatarsal
[2021-03-18] MEDS: cefTRIAXone SODIUM 2,000 MG in DEXTROSE 5% 50 ML IV SCH (20:32)
[2021-03-18] MEDS: hydrOXYzine HCl 25 MG TAB PO SCH (20:33)
[2021-03-18] MEDS: PREGABALIN 75 MG CAP PO SCH (20:33)
[2021-03-18] MEDS: MONTELUKAST SODIUM 10 MG TABLET PO SCH (20:33)
[2021-03-19] MEDS: DAPTOmycin 300 MG in SYRINGE 0 ML IV SCH (06:12)
[2021-03-19] MEDS: FLUTICASONE PROPIONATE NA SPR 16 GM BTL SCH (08:52)
[2021-03-19] MEDS: FLUTICASONE/VILANTEROL 200/25MCG 14 PUFFS/INHALER INH SCH (08:52)
[2021-03-19] MEDS: DIVALPROEX EXTENDED RELEASE 250 MG TABCR PO SCH (08:53)
[2021-03-19] MEDS: MULTIVITAMIN TAB PO SCH (08:53)
[2021-03-19] MEDS: CETIRIZINE HCL 10 MG TABLET PO SCH (08:53)
[2021-03-19] MEDS: VORTIOXETINE HYDROBROMIDE PO SCH (08:54)
[2021-03-19] MEDS: PREGABALIN 50 MG CAP PO SCH (08:56)
[2021-03-19] MEDS: oxyCODONE HCL IR 5 MG TAB (IMMEDIATE RELEASE) PO PRN (10:01)
[2021-03-19] MEDS: BENZONATATE 100 MG CAPSULE PO PRN (10:01)
[2021-03-19] MEDS: ACETAMINOPHEN 325 MG TAB PO PRN (10:02)
--- NOTE | 2021-03-19 10:54 | Orthopedic Progress Note ---
Date of Service March 19, 2021 Assessment & Plan (1) Metatarsal bone fracture: Non-displaced fractures left 1st and 2nd metatarsals. RICE. Continue Celebrex to 200 mg daily, alternating with Tylenol as needed for pain. Will utilize Tubigrip, and obtain a postop shoe. Will be weightbearing as tolerated through his heel plus or minus crutches. (2) Cellulitis: Aspiration of the foot showed no growth. Removed from operating room add-on list for an I&D this morning, no surgical intervention needed at this time. Orthopedically the patient is stable for discharge. Discharge will be deferred to Medicine service and Prescriptions for pain contro l and oral antibiotics will be at their discretion F/u with Carla Rivers PA-C on 03/31/21 @ 8:45 AM I, Dr. Coffey, saw and examined the patient and discussed the management with my PA. I reviewed my PAs note and agree with the documented findings and the plan of care I developed. Admission and Anticipated Discharge Date Admission Date: March 17, 2021 Subjective Patient was seen today for follow-up evaluation of left foot metatarsal fractures with associated cellulitis. Patient states the foot feels pretty good today. He states that the swelling and redness has subsided significantly. He asks if he can be discharged home today and will would prefer to follow-up in our clinic in regards to the fractures. He denies fever, chills, sweats, lethargy, numbness or tingling in the left foot, chest pain, shortness of breath or weakness. States he has been able to ambulate on the foot and it is much better than when he was admitted initially. Review of Systems Review of Systems: All systems reviewed & are unremarkable except as noted in Subjective Physical Exam Physical Exam: Sensation to light touch is intact Motor to the gastroc soleus, tibialis anterior, and EHL is 5/5. Mild tenderness to palpation over the first, second, and third metatarsals Band-Aid over the site of the aspiration near base of second metatarsal. This area is slightly tender to palpation with some very minimal surrounding edema and erythema - Forefoot squeeze test. No ecchymosis, warmth or palpable bony deformity. Patient is able to actively dorsi and plantarflex his foot. He is able to perform a straight leg raise test. Quad strength is 4 out of 5. Calf is soft and supple without tenderness to palpation. Peripheral pulses are 2+. Capillary fill is less than 2 seconds. Results & Data ([facility]) Vital Signs (Past 12 Hours) Vital Signs Temp Pulse Resp BP Pulse Ox 03/19/21 07:18 36.4 C L 89 16 100/65 96 Laboratory Results L Foot aspiration Final Cx showed no growth (1) Metatarsal bone fracture Encounter type: subsequent encounter Fracture alignment: nondisplaced Fracture type: closed Laterality: left Metatarsal bone: unspecified metatarsal
--- NOTE | 2021-03-19 16:29 | Discharge Summary ---
Date of Service March 19, 2021 Admission HPI Per Admitting Provider CHIEF COMPLAINT: Left foot injury. HISTORY OF PRESENT ILLNESS: This is a 26-year-old male with past medical history significant for allergic rhinitis, mixed rhinitis, intermittent asthma, slow transit constipation, allergic conjunctivitis bilateral, adjustment depression, bipolar 1 disorder, history of tobacco use disorder, who comes because of left foot infection. The patient dropped a piano on his foot on 02/28/2021. He was in the ER and he was followed with orthopedics. He has a nondisplaced fracture of the first and second and third metatarsals. Initially treated with a splint and then placed on the boot. Then he noticed some redness in that area. Followed up with the family doctor, prescribed doxycycline, but it was not getting better, so came to the ER on 03/12/2021. Given a dose of Rocephin and discharged on cefdinir and doxycycline but as it was not getting better, he came to the hospital. Denies any fever, chills. Has pain on the redness area. Denies any nausea or vomiting, no abdominal pain, no chest pain or shortness of breath. No cough, no headache, no blurred vision, no earache, no runny nose. Appetite is okay. Normal bowel and bladder movements. In the ER, with the vancomycin developed redness of the trunk and itchiness. Currently, resting comfortably and hemodynamically stable. Admission Exam Per Admitting Provider GENERAL: The patient is of moderate built, not in acute distress. VITAL SIGNS: Temperature 37, pulse 89, respiratory rate 12, blood pressure 131/73, oxygen 96% on room air. HEENT: Pupils equal, round, reactive to light. Oral mucosa moist. NECK: No JVD. No neck masses. CARDIOVASCULAR: S1, S2 heard, regular rate and rhythm, no murmur, no gallop. RESPIRATORY SYSTEM: Normal AP diameter. No accessory muscle use. No wheezing, no crackles. ABDOMEN: Soft, bowel sounds present, nontender. No distention. CENTRAL NERVOUS SYSTEM: Cranial nerves II-XII grossly intact. Nonfocal. EXTREMITIES: Left foot is erythematous, slight swelling, mild warmth on palpation. Principal Diagnosis Metatarsal bone fracture: Cellulitis: Discharge Exam General- No acute distress Head- atraumatic Eyes- PERRL, EOMI, ENT- oropharynx clear Neck- supple, no JVD Lungs- clear to auscultation Heart- regular rhythm; no murmur Abdomen- normal bowel sounds, soft, nontender Extremities- no calf tenderness, erythema and swelling in left foot Neuro- alert, oriented x 3; PERRL, EOMI; no facial palsy; no dysarthria Skin- warm & dry Discharge Data Allergies Allergy/AdvReac Type Severity Reaction Status Date / Time vancomycin AdvReac red man Verified 03/17/21 06:16 syndrome Consultations 03/16/21 22:04 ED Decision to Admit Stat 03/17/21 08:00 Consult Orthopedic Surgery Routine Procedures Performed Operation Date: 03/19/21 13:55 <No data on this case meets the specified criteria> Ordered Studies 03/16/21 23:43 US soft tissue ext ltd Routine 03/17/21 10:18 MR ankle LT wo con Urgent MR foot LT w/o con Urgent XR foot LT min 3V routine, XR ankle LT min 3V routine HISTORY: 26 years-old Male cellulitis, h/o metatarsal fx acute pain of the left foot and ankle COMPARISON: Left foot radiographs 02/28/2021 TECHNIQUE: 3 views of the left foot and 3 views of the left ankle FINDINGS: FOOT: Subacute healing fractures with unchanged alignment of the first, second and third metatarsals. No additional acute fracture or dislocation. No opaque foreign body. Decreased soft tissue swelling of the forefoot. ANKLE: Moderate circumferential soft tissue swelling. No acute fracture, dislocation or osteochondral defect. Small plantar enthesophyte of the calcaneus. IMPRESSION: 1. Unchanged alignment of the healing subacute nondisplaced fractures of the first, second and third metatarsals. 2. Decreased soft tissue swelling of the forefoot. 3. Circumferential soft tissue swelling of the ankle. ACT 112: Negative or not required by law. The above report was generated using voice recognition software. It may contain grammatical, syntax or spelling errors. Electronically signed by: Eric Langford M.D. 03/16/2021 9:21 PM Dictated: 03/16/212118Transcribed: 03/16/212118 XR foot LT min 3V routine, XR ankle LT min 3V routine HISTORY: 26 years-old Male cellulitis, h/o metatarsal fx acute pain of the left foot and ankle COMPARISON: Left foot radiographs 02/28/2021 TECHNIQUE: 3 views of the left foot and 3 views of the left ankle FINDINGS: FOOT: Subacute healing fractures with unchanged alignment of the first, second and third metatarsals. No additional acute fracture or dislocation. No opaque foreign body. Decreased soft tissue swelling of the forefoot. ANKLE: Moderate circumferential soft tissue swelling. No acute fracture, dislocation or osteochondral defect. Small plantar enthesophyte of the calcaneus. IMPRESSION: 1. Unchanged alignment of the healing subacute nondisplaced fractures of the first, second and third metatarsals. 2. Decreased soft tissue swelling of the forefoot. 3. Circumferential soft tissue swelling of the ankle. ACT 112: Negative or not required by law. The above report was generated using voice recognition software. It may contain grammatical, syntax or spelling errors. Electronically signed by: Eric Langford M.D. 03/16/2021 9:21 PM Dictated: 03/16/212118Transcribed: 03/16/212118 LEFT FOOT ULTRASOUND CLINICAL HISTORY: Left foot swelling. COMPARISON STUDY: None FINDINGS: A targeted ultrasound of the dorsum of the left foot was performed. There is a complex fluid collection with internal echoes corresponding to the area of palpable swelling measuring 30 x 17 x 9 mm. There is peripheral hyperemia. Diagnostic considerations include abscess or organizing hematoma. There is adjacent subcutaneous edema. IMPRESSION: 1. 30 x 17 x 9 mm complex fluid collection within the subcutaneous tissues of the dorsum of the left foot. There is adjacent edema and surrounding hyperemia. Likely diagnostic considerations include abscess versus organizing hematoma. ACT 112: Negative or not required by law. Electronically signed by: Abelino Platt M.D. 03/17/2021 9:33 AM Dictated: 03/17/21930Transcribed: 03/17/21930 MR ankle LT wo con CLINICAL HISTORY: Left ankle pain and swelling. Cellulitis. Evaluate for osteomyelitis. COMPARISON STUDY: X-ray study dated 03/16/2021 FINDINGS: There is first metatarsal marrow edema, consistent with the patient's known healing fracture. There is a partially visualized subcutaneous cystic lesion at the level of the dorsal aspect of the second metatarsal. This was better visualized on the MRI of the foot performed the same day. The sterility of this collection cannot be determined. There is diffuse dorsal soft tissue edema. There are no areas of marrow replacement to indicate neoplasm. There is no evidence of major ligamentous disruption. There is no evidence of significant tendinopathy. IMPRESSION: 1. First metatarsal marrow edema consistent with the patient's known healing fracture 2. Dorsal soft tissue edema 3. Partially visualized subcutaneous fluid collection visualized dorsally at the second metatarsal level. The sterility of this collection cannot be determined. ACT 112: Negative or not required by law. Electronically signed by: Abelino Platt M.D. 03/17/2021 1:05 PM Dictated: 03/17/21 1302Transcribed: 03/17/21 1302 MRI OF THE LEFT FOREFOOT NO CONTRAST CLINICAL HISTORY: Cellulitis. History of metatarsal fracture. Possible acute osteomyelitis. COMPARISON STUDY: X-ray study dated 03/16/2021 FINDINGS: Imaging was acquired in the axial, sagittal, and coronal planes. There is dorsal soft tissue edema. There is marrow edema involving the first and second metatarsals, consistent with the history of prior fractures. There is a dorsal duct containing soft tissue fluid collection located at the mid second metatarsal level measuring 35 x 8 x 18 mm. The sterility of this collection cannot be determined on MRI scanning. IMPRESSION: 1. Marrow edema involving the first and second metatarsals, likely secondary to healing fractures. 2. Subcutaneous dorsal fluid collection at the mid second metatarsal level measuring 35 x 18 x 8 mm. The sterility of this collection cannot be determined on MRI scanning. 3. Diffuse dorsal soft tissue edema. ACT 112: Negative or not required by law. Electronically signed by: Abelino Platt M.D. 03/17/2021 12:14 PM Dictated: 03/17/21 1206Transcribed: 03/17/21 1206 Hospital Course (1) Metatarsal bone fracture: (2) Cellulitis: Failed outpatient treatment with oral antibiotics with cefdinir and doxycycline Received vancomycin and Rocephin in the ER. MRI of left foot showed marrow edema involving the first and second metatarsals, secondary to healing fractures. Subcutaneous dorsal fluid collection at the mid second metatarsal level measuring 35 x 18 x 8 mm. MRI left ankle showed dorsal soft tissue edema Will continue abx with Vanco and Rocephin Ortho on board S/P aspiration on 03/17 by ortho Waiting for culture result from the aspiration if cx grew any organism, ortho will take him for I&D Continue Celebrex to 200 mg daily, alternating with Tylenol as needed for pain Continue weightbearing as tolerated through his heel plus or minus crutches. Continue pain control PT/OT eval Bipolar depression: Continue home medications of divalproex, Trintellix. History of asthma Continue home inhalers, currently stable. History of allergic rhinitis: Continue cetirizine. DVT px will place on SCD for now Total Time Total Time Spent Total Time Spent (In Minutes): 35 minutes Total Time Includes: Examination of the Patient, Discharge Planning, Medication Reconciliation, Communication With Other Providers and Other Discharge Plan Discharge Items Patient Disposition: Home - Self-Care Reason For Visit: FOOT INJURY Discharge Diagnosis: Metatarsal bone fracture: Cellulitis: Activity: As commented below Non-emergency contact: Primary Care Provider and Surgeon Call non-emergency contact if: you have any medication questions Follow-up/Referrals: Sunshine Mariscal PA-C [Primary Care Provider] - (Date & Time 03/25/2021 10:20 AM Provider Micha New MD Department [facility] ) Diet: Regular Addtl Attending Provider Instructions: Follow up with your primary care provider Dr. New on 03/25/2021 at 10:20 AM at the [facility] Follow up with orthopedic Carla Rivers PA-C on 03/31/21 @ 8:45 AM Continue to wear the postop shoe. Continue weightbearing as tolerated through his heel plus or minus crutches. Fall precaution Complete the course of the antibiotic Do not drive or operate any machine after taking oxycodone Please hold next dose of oxycodone if you develop any lethargy or drowsiness Pending Studies at Discharge: No Stand-Alone Forms: My [facility] [employer], Smoking Cessation Medications and DC Order Prescriptions: Continued montelukast 10 mg tablet 10 mg PO HS RF: 0 baclofen 20 mg tablet 20 mg PO TID PRN (Reason: muscle spasm back pain) RF: 0 celecoxib 100 mg capsule 100 mg PO QAM RF: 0 pregabalin 50 mg capsule 50 mg PO QAM RF: 0 pregabalin 75 mg capsule 75 mg PO HS RF: 0 cetirizine 10 mg tablet 10 mg PO QAM RF: 0 benzonatate 100 mg capsule 100 mg PO TID PRN (Reason: Cough) RF: 0 divalproex 250 mg tablet extended release 24 hr 250 mg PO QAM RF: 0 Trintellix 10 mg tablet 15 mg PO QAM RF: 0 albuterol sulfate 90 mcg/actuation HFA aerosol inhaler 2 puff INHALATION Q4 PRN (Reason: Wheezing) RF: 0 Dulera 100-5 mcg/actuation HFA aerosol inhaler 2 puff INHALATION BID RF: 0 multivitamin Tablet 1 tab PO DAILY RF: 0 fluticasone propionate 50 mcg/actuation spray,suspension 1 - 2 spray INTRANASAL DAILY RF: 0 hydroxyzine pamoate 25 mg capsule 25 mg PO HS RF: 0 doxycycline hyclate 100 mg capsule 100 mg PO BID 7 Days Qty: 14 RF: 0 Changed oxycodone 5 mg tablet 5 mg PO Q8H PRN (Reason: pain) Qty: 12 RF: 0 Discontinued cefdinir 300 mg capsule 300 mg PO BID 9 Days Qty: 18 RF: 0 Discharge Orders: Discharge Order (Routine); Ordered 03/19/21 Ordered By: Enedelia Subramanian/Other Patient Handouts: Discharge Instructions for Cellulitis Admission Data Admit Date/Time: 03/17/21 01:52 Attending Provider: Enedelia Abernathy Admit Provider: Min Valladares Primary Care Provider: Sunshine Mariscal Other Providers: Mni Valladares ; Ceasar Coffey ; Jose Caban Other Interventions: Discharge Summary Assessment (RN) Last Done: 03/19/21 14:40
== END 2021-03-19 17:28 | disposition home or self-care (01) | DRG 603 ==
LOC: ED 18:52 → 3N 03-17 01:52 → SUATTDRO 03-17 01:52 → 3N 03-17 02:36